=== PATIENT | female | born 1950 | race African-American/Black ===

== ENCOUNTER → 2016-06-14 | Day surgery (SDC) | payer MEDICARE ==
[~2016-06-14] VITALS: Ht 160 cm; Wt 70.3 kg
[2016-06-14] VITALS (8 sets, daily range): BP systolic 108–146; BP diastolic 67–87
[~2016-06-14] MED LIST: ASPIR 8181 MG ORAL; ATENOLOL100 MG ORAL; ATORVASTATIN CA40 MG ORAL; Akten 3.5% 1ml Btl ONE; BSS 15ml BTL ONE; BSS 500ml btl ONE; Carbachol 0.01% Op Soln 1.5ml vial ONE; DYAZIDE1 CAP ORAL; Dexamethasone 4mg/ml vial ONE; Diclofenac Sod 0.1% Op Soln ONE; EPINEPHrine 1mg/1ml Amp ONE; Gatifloxacin Opth Solution 0.5% ONE; LR 1000ml ONE; Lidocaine 1% MPF 10mg/ml 5ml ONE; Midazolam 2mg/2ml Inj ONE; Phenylephrine 2.5% Op Soln ONE; Povidone-Iodine 5% opth solution ONE; Sodium Hyaluronate 14 mg/ml 0.85ml ONE; Tobradex Opth Susp 2.5ml ONE; Tropicamide 1% Opth Soln ONE
[2016-06-14] MEDS: Tropicamide 1% Opth Soln LEFT EYE SCH ×3 (06:24→06:52)
[2016-06-14] MEDS: Phenylephrine 2.5% Op Soln LEFT EYE SCH ×3 (06:24→06:52)
[2016-06-14] MEDS: Gatifloxacin Opth Solution 0.5% LEFT EYE SCH ×3 (06:25→06:52)
[2016-06-14] MEDS: Diclofenac Sod 0.1% Op Soln LEFT EYE SCH ×3 (06:25→06:52)
[2016-06-14] MEDS: Tobradex Opth Susp 2.5ml LEFT EYE SCH ×3 (06:25→06:52)
[2016-06-14] MEDS: Akten 3.5% 1ml Btl LEFT EYE SCH ×3 (06:25→06:52)
--- NOTE | 2016-06-14 07:33 | Pre-Procedure Note/Attestation ---
Pre-Procedure Note/Attestation Complete Prior to Procedure Planned Procedure: left Procedure Narrative: cataract extraction with implant left eye Indications for Procedure Pre-Operative Diagnosis: cataract left eye Attestation I attest that I discussed the nature of the procedure; its benefits; risks and complications; and alternatives (and the risks and benefits of such alternatives ), prior to the procedure, with the patient (or the patient's legal sales representative printing supplies). I attest that, if there was a reasonable possibility of needing a blood transfusion, the patient (or the patient's legal sales representative printing supplies) was given the [facility] standardized written summary, pursuant to the Miles Donte Blood Safety Act ([place] Health and Safety Code # 1645, as amended). I attest that I re-evaluated the patient just prior to the surgery and that there has been no change in the patient's H&P, except as documented below: GERALDO VILLALOBOS Jun 14, 2016 07:33
--- NOTE | 2016-06-14 07:50 | Anethesia Preoperative Eval ---
Anesthesia Pre-op PMH/ROS General Date of Evaluation: Jun 14, 2016 Time of Evaluation: 07:48 Anesthesiologist: wolfgang ASA Score: ASA 2 Mallampati Score Class I : Soft palate, uvula, fauces, pillars visible Class II: Soft palate, uvula, fauces visible Class III: Soft palate, base of uvula visible Class IV: Only hard plate visible Mallampati Classification: Class II Surgeon: flora Diagnosis: cataract Surgical Procedure: cataract extraction left eye Anesthesia History: none Family History: no anesthesia problems Allergies: Coded Allergies: CORTISONE (Verified Allergy, Unknown, EYE,TEETH PAIN, 11/16/14) PENICILLINS (Verified Adverse Reaction, Unknown, STOMACH UPSET, 11/16/14) Uncoded Allergies: PENCILLIN (Adverse Reaction, Unknown, STOMACH UPSET, 11/16/14) Past Medical History Cardiovascular: Reports: HTN Pulmonary: Denies: COPD, KASHMIR, asthma, other Gastrointestinal/Genitourinary: Denies: CRI, ESRD, GERD, other Neurologic/Psychiatric: Denies: CVA, TIA, dementia, depression/anxiety, other Endocrine: Denies: DM, hypothyroidism, other, steroids HEENT: Reports: cataract (L) Hematology/Immune: Denies: DVT, anemia, bleeding disorder, other Musculoskeletal/Integumentary: Denies: DDD, DJD, OA, RA, edema, other PSxH Narrative: cataract extraction right eye Anesthesia Pre-op Phys. Exam Physician Exam Last Vital Signs Date Time Temp Pulse Resp B/P Pulse Ox O2 Delivery O2 Flow Rate FiO2 06/14/16 06:29 97.3 18 128/76 97 Room Air Constitutional: NAD Neurologic: CN 2-12 intact Cardiovascular: RRR Respiratory: CTA Gastrointestinal: S/NT/ND Airway Exam Mallampati Classification 2 Mallampati Score: Class II MO: full ROM: full Dentures: no lower, no upper Anesthesia Pre-op A/P Studies Pre-op Studies: EKG - sr Risk Assessment & Plan Plan: mac Status Change Before Surgery: No Pre-Antibiotics Drug: none Given Within 1 Hr of Incision: No BRANDON LEBLANC CRNA Jun 14, 2016 07:50
--- NOTE | 2016-06-14 08:06 | Brief Operative Note ---
Immediate Post Operative Note Operative Note Pre-op Diagnosis: cataract left eye Procedure: phacoemulsification of cataract with implant left eye Post-op Diagnosis: same as pre-op Surgeon: geraldo hines Speech Language Pathologist: none Anesthesiologist: radha barrera crna Anesthesia: MAC Specimen: none Complications: none Condition: stable Estimated Blood Loss: none Drains: none Implant(s) used?: Yes GERALDO HINES Jun 14, 2016 08:06
--- NOTE | 2016-06-14 08:07 | Immediate Post-Op Evaluation ---
Immediate Post-Op Evalulation Immediate Post-Op Evalulation Procedure: cataract extraction left eye Date of Evaluation: Jun 14, 2016 Time of Evaluation: 08:06 IV Fluids: 300 Blood Pressure Systolic: 120 Blood Pressure Diastolic: 70 Pulse Rate: 75 Respiratory Rate: 14 O2 Sat by Pulse Oximetry: 99 Temperature (Fahrenheit): 98.5 Nausea: No Vomiting: No Complications none Patient Status: awake, reacts, patent Hydration Status: adequate Drug: none TARRILLION,BRANDON ANTIONETTE Jun 14, 2016 08:07
--- NOTE | 2016-06-14 08:37 | 48 Hour Post Anesthesia Eval ---
Post Anesthesia Evaluation Procedure: cataract extraction left eye Date of Evaluation: Jun 14, 2016 Time of Evaluation: 08:36 Blood Pressure Systolic: 117 0: 73 Pulse Rate: 75 Temperature (Fahrenheit): 97.5 O2 Sat by Pulse Oximetry: 99 Airway: patent Nausea: No Vomiting: No Hydration Status: adequate Cardiopulmonary Status: normal Mental Status/LOC: patient returned to baseline Post-Anesthesia Complications: none Follow-up care needed: N/A BRANDON LEBLANC CRNA Jun 14, 2016 08:37
--- NOTE | 2016-06-14 11:57 | Operative Note - Dictated ---
DATE OF OPERATION: 06/14/2016 PREOPERATIVE DIAGNOSIS: Cataract, left eye. POSTOPERATIVE DIAGNOSIS: Cataract, left eye. PROCEDURE: Phacoemulsification of cataract, left eye, with placement of posterior intraocular lens. SURGEON: Aguila Traore M.D. ([facility] [place]) CARDIOVASCULAR SURGEON: None. ANESTHESIA: MAC/topical. ANESTHESIOLOGIST: Paola Elliott C.R.N.A. INDICATION FOR PROCEDURE:: Poor vision, left eye. DESCRIPTION OF FINDINGS: Nuclear sclerotic cataract, left eye. DESCRIPTION OF PROCEDURE: The patient received a topical anesthetic block consisting of 3.5% Akten eye drops. The eye was prepped and draped in usual manner. A lid speculum was placed and an operating Zeiss microscope was positioned. A temporal corneal groove was made with the marquez blade. A SuperSharp blade made a stab incision at the 6 o'clock position. A 0.1 mL of 1% nonpreserved intracameral lidocaine was injected. Healon was instilled into the anterior chamber and a 2.5/2.8 mm trapezoidal marquez blade was used to complete the temporal corneal wound. A cystotome was used to create an anterior capsular flap. Utrata forceps were used to complete the capsulorrhexis. BSS on a cannula was used to hydrodissect the nucleus. The lens nucleus phacoemulsified in a phaco-fracture technique. Remaining cortical material was removed with the I/A and the posterior capsule was polished with the I/A on Cap vac. Healon was reinstilled into the capsular bag and anterior chamber, and an Whiteside foldable one-piece posterior intraocular lens, model ZCB00, power 28.0 diopter, serial #[id number] was placed in the injector. The lens was put in the capsular bag. The I/A tip was used to remove the Healon and position the lens. The wound edge was hydrated with BSS and a blunt-tipped cannula. The wound was checked and found to be watertight. The lid speculum was removed, and a drop of TobraDex and Zymaxid was placed. A clear plastic shield was taped over the eye. The patient tolerated the procedure well and left the operating room in good position. Aguila Traore M.D. (CSM) DR: Traci JOB#: [id number] CC: Sierra Hunter M.D.
== END | disposition home or self-care (01) ==
LOC: SUR 05:41
DX: H25.12 Age-related nuclear cataract, left eye (principal); I10 Essential (primary) hypertension; E78.00 Pure hypercholesterolemia, unspecified; R27.0 Ataxia, unspecified; H81.09 Meniere's disease, unspecified ear; J84.10 Pulmonary fibrosis, unspecified; H53.009 Unspecified amblyopia, unspecified eye; H53.19 Other subjective visual disturbances; E74.39 Other disorders of intestinal carbohydrate absorption; Z86.010 Personal history of colon polyps; Z86.73 Personal history of transient ischemic attack (TIA), and cerebral infarction without residual deficits; Z90.710 Acquired absence of both cervix and uterus; Z90.722 Acquired absence of ovaries, bilateral; Z90.79 Acquired absence of other genital organ(s); Z88.0 Allergy status to penicillin; Z88.8 Allergy status to other drugs, medicaments and biological substances
CPT/HCPCS: 66984; J0171; J1100; J2250; J7120; V2632; 94003; 94150